=== PATIENT | male | born 1975 | race Caucasian/White ===

== ENCOUNTER 2017-08-28 08:14 | Emergency (ER) | payer OTHER ==
[~2017-08-28] VITALS: Ht 190.5 cm; Wt 122.5 kg
== END 2017-08-28 09:21 | disposition home or self-care (01) ==
LOC: ED 08:14
DX: S80.11XA Contusion of right lower leg, initial encounter (principal); X58.XXXA Exposure to other specified factors, initial encounter; Y92.69 Other specified industrial and construction area as the place of occurrence of the external cause
CPT/HCPCS: 73590; 85379; 99283